=== PATIENT | female | born 1960 | race Caucasian/White ===

== ENCOUNTER 2024-04-18 13:12 | Outpatient (CLI) | payer BC, SELFPAY ==
--- NOTE | 2024-04-18 13:00 | DI.RAD_ITS ---
Exam(s) XR SACRUM COCCYX EXAM: XR SACRUM COCCYX CLINICAL HISTORY: eval fx M53.3 SACROCOCCYGEAL DISORDER. TECHNIQUE: 2D digital imaging was performed. COMPARISON: No exams were available for comparison FINDINGS: 3 views There is evidence of previous anastomotic surgery in the pelvis. Calcification lateral left pelvis i s probably phlebolith. There is no obvious fracture in the sacrum. However, on the lateral view there is irregularity of th e distal cortex of the coccyx as well as an independent fragment below this level from the parent bone by almost 1 cm. This may represent displaced fracture or other pathology. Ischial tuber osities appear unremarkable. There is disc space narrowing seen in the lower lumbar spine. IMPRESSION: Coccyx abnormality as described above. Correlation with clinical findings and history recommended. This can be further investigated with CT or MRI if clinically indicated DATA REPOSITORY: RADIATION DOSE DELIVERED:
== END 2024-04-18 13:32 ==
LOC: DI 13:15
PROVIDERS: Visit Provider Nurse Practitioner Family
DX: M53.3 Sacrococcygeal disorders, not elsewhere classified (principal)
CPT/HCPCS: 72220

== ENCOUNTER 2024-09-06 13:44 | Emergency (ER) | payer BC, SELFPAY ==
[2024-09-06] VITALS (11 sets, daily range): BP systolic 162–199; BP diastolic 83–108; PULSE 55–66; RESP 9–26; TEMP 37.1; O2SAT 98–100
--- NOTE | 2024-09-06 14:08 | NUR.NOTE ---
Nursing Note: C spine cleared by provider and collar removed by provider
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
[2024-09-06] MEDS: MORPHine 4 MG/ML SYR IVP (14:17)
[2024-09-06] MEDS: Ondansetron 4 MG/2 ML VIAL (14:26)
[2024-09-06] MEDS: HYDROmorphone 2 MG/ML SYR 1 MG IVP (14:42)
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
[2024-09-06] MEDS: Ibuprofen 800 MG TAB PO (16:06)
== END 2024-09-06 16:06 | disposition home or self-care (01) ==
PROVIDERS: Emergency Provider Physician Assistant
DX: S42.032A Displaced fracture of lateral end of left clavicle, initial encounter for closed fracture (principal); V18.4XXA Pedal cycle driver injured in noncollision transport accident in traffic accident, initial encounter; Y93.55 Activity, bike riding; Y92.89 Other specified places as the place of occurrence of the external cause
CPT/HCPCS: 96374; 96375; 99284; 71046; 73030; J1171; J2270; J2405